=== PATIENT | female | born 1955 | race Caucasian/White ===

== ENCOUNTER 2017-06-16 13:09 | Emergency (ER) | payer SELFPAY ==
[~2017-06-16] VITALS: Ht 152.4 cm; Wt 72.7 kg
[2017-06-16 13:11] VITALS: BP 133/65; PULSE 65; RESP 18; TEMP 98.1; O2SAT 98
--- NOTE | 2017-06-16 14:11 | PD ---
HPI Chief Complaint: Cold / Flu Symptoms Time Seen by Provider: 14:05 Travel History International Travel<30 days: Yes Contact w/Intl Traveler<30days: Yes Name of Country Traveled to: [place] Traveled to known affect area: No History of Present Illness HPI 61-year-old female who traveled here from [place] on June 08 presents for evaluation of sore throat, cough and congestion. Symptoms started 4 days ago. Symptoms are mild to moderate, aggravated by coughing, unrelieved with over-the- counter cough and cold medications. The cough is productive with yellow sputum. She denies any fevers, chills, myalgias. No sick contacts. No significant past medical history. No other complaints. PFSH Social History Alcohol Use: No Tobacco Use: No Substance Use: No Allergies-Medications (Allergen,Severity, Reaction): Coded Allergies: No Known Allergies (Unverified , 06/16/17) Review of Systems Except as stated in HPI: all other systems reviewed are Neg Physical Exam Narrative GENERAL: Well-nourished female in no acute distress SKIN: Warm and dry. HEAD: Atraumatic. Normocephalic. EYES: Pupils equal and round. No scleral icterus. No injection or drainage. ENT: No nasal bleeding or discharge. Mucous membranes pink and moist. NECK: Trachea midline. No JVD. CARDIOVASCULAR: Regular rate and rhythm. No murmur appreciated. RESPIRATORY: No accessory muscle use. Clear to auscultation. Breath sounds equal bilaterally. GASTROINTESTINAL: Abdomen soft, non-tender, nondistended. Hepatic and splenic margins not palpable. Data Data Last Documented VS Vital Signs Date Time Temp Pulse Resp B/P (MAP) Pulse Ox O2 Delivery O2 Flow Rate FiO2 06/16/17 13:11 98.1 65 18 133/65 (87) 98 Orders Orders Chest, Single Ap (06/16/17 ) Group A Rapid Strep Screen (06/16/17 14:09) Strep Culture (Group A) (06/16/17 14:10) MDM Medical Decision Making Medical Screen Exam Complete: Yes Emergency Medical Condition: Yes Medical Record Reviewed: Yes Differential Diagnosis Bronchitis, streptococcal pharyngitis, pneumonia, reactive airway disease, sinusitis Narrative Course 61-year-old female with cough, congestion, sore throat. She appears well. Chest x-ray rapid strep screen performed and they are both negative for acute process. The patient appears to have bronchitis. She'll be discharged with Tessalon. Diagnosis Primary Impression: Bronchitis Additional Instructions: Medication as prescribed. Stay well hydrated well-nourished. Return for any emergent medical conditions. Med/Other Pt SpecificInfo: Prescription(s) given Scripts Benzonatate (Tessalon Perles) 100 Mg Cap 200 MG PO TID Y for COUGH, #30 CAP 0 Refills Prov: April Benz MD 06/16/17 Disposition: 01 DISCHARGE HOME Condition: Stable Yovanny Cadet Jun 16, 2017 14:11
--- NOTE | 2017-06-16 15:46 | RADRPT ---
EXAM DATE/TIME: 06/16/2017 14:31 [facility] COMPARISON: No previous studies available for comparison. INDICATIONS : Productive cough and short of breath since Tuesday. MEDICAL HISTORY : None. SURGICAL HISTORY : None. ENCOUNTER: Initial ACUITY: 4 - 6 days PAIN SCORE: 0/10 LOCATION: Bilateral chest FINDINGS: The heart is normal in size. The lungs demonstrate minimal atelectatic change at the left base but ar e otherwise clear. The mediastinal contours are within normal limits. Note is made of a rotatory scol iosis in the thoracic spine. CONCLUSION: 1. Rotatory scoliosis of the thoracic spine. 2. No acute cardiopulmonary findings identified. Alfredito العراقي MD on June 16, 2017 at 15:41 Board Certified Radiologist. This report was verified electronically.
[2017-06-16] MEDS ORDERED: BENZ100 PO (15:50)
== END 2017-06-16 16:17 | disposition home or self-care (01) ==
LOC: NEPK 13:09
DX: J40 Bronchitis, not specified as acute or chronic (principal)
CPT/HCPCS: 71045; 87081; 87880; 99284